=== PATIENT | male | born 1990 | race Caucasian/White ===

== ENCOUNTER 2018-09-30 20:39 | Emergency (ER) | payer OTHER ==
[~2018-09-30] VITALS: Ht 180.3 cm; Wt 88.5 kg
[2018-09-30] MEDS ORDERED: ROBAXIN-750750 MG PO (21:20)
[2018-09-30] MEDS ORDERED: IBUPROFEN600 MG ORAL (21:20)
[2018-09-30 21:26] VITALS: BP 137/79
[2018-09-30 21:35] VITALS: BP_SYST 120; BP_SYST 125; BP_DIAS 72; BP_DIAS 73
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
== END 2018-09-30 21:35 | disposition home or self-care (01) ==
LOC: EMR 21:26
DX: M54.5 Low back pain (principal); M54.2 Cervicalgia; R51 Headache; V43.62XA Car passenger injured in collision with other type car in traffic accident, initial encounter; Y92.488 Other paved roadways as the place of occurrence of the external cause; Z87.891 Personal history of nicotine dependence
CPT/HCPCS: 99283